=== PATIENT | female | born 1975 | race Caucasian/White ===

== ENCOUNTER 2017-10-01 14:51 | Emergency (ER) | payer MEDICARE ==
[~2017-10-01] VITALS: Ht 177.8 cm; Wt 159.1 kg
[~2017-10-01 14:51] MED LIST: DESYREL 100MG100 MG PO; GEODON80 MG PO; VALIUM 5MG T5 MG/TAB PO
[2017-10-01 14:53] VITALS: BP 146/90; TEMP 98.2
[2017-10-01] MEDS ORDERED: PHENERGAN 25 TA25 MG PO (16:14)
[2017-10-01 17:03] VITALS: PULSE 96
== END 2017-10-01 17:03 | disposition home or self-care (01) ==
LOC: COL.ER 14:51
DX: F31.9 Bipolar disorder, unspecified (principal)

== ENCOUNTER 2017-12-27 23:07 | Emergency (ER) | payer MEDICARE ==
[~2017-12-27] VITALS: Ht 177.8 cm; Wt 159.1 kg
[~2017-12-27 23:07] MED LIST changes: +PHENERGAN 25 TA25 MG PO
[2017-12-27 23:08] VITALS: TEMP 98.3
[2017-12-28 00:30] LABS: BASO # 0.1 (0.0-0.2); BASO % 0.7 % (0.0-2.0); EOS # 0.3 (0.0-0.7); EOS % 2.8 % (0-4.0); GRAN # 8.1 (1.4-6.5); GRAN % 69.2 % (42.2-75.2); HEMATOCRIT 43.7 % (37.0-47.0); HEMOGLOBIN 14.2 g/dl (12.5-16.0); LYMPH # 2.5 (1.2-3.4); LYMPH % 21.4 % (20.0-51.0); MEAN CELL VOLUME 86 fl (80.0-100.0); MEAN CORPUSCULAR HEMOGLOBIN 28 pg (27.0-31.0); MEAN CORPUSCULAR HGB CONC 33 g/dl (33.0-37.0); MEAN PLATELET VOLUME 9.1 fl (7.4-10.4); MONO # 0.6 (0.1-0.6); MONO % 5.4 % (1.7-9.3); PLATELET COUNT 291 K/mm3 (130-400); RED BLOOD COUNT 5.08 M/mm3 (4.10-5.30)
[2017-12-28 00:41] LABS: ALANINE AMINOTRANSFERASE 31 U/L (9-52); ALBUMIN 3.9 gm/dL (3.5-5.0); ALKALINE PHOSPHATASE 122 U/L (50-136); ANION GAP 8 mmol/L (7-16); AST,SGOT 18 U/L (15-37); BILIRUBIN,TOTAL 0.3 mg/dL (0.0-1.0); BLOOD UREA NITROGEN 13 mg/dL (7-17); CALCIUM 9.1 mg/dL (8.4-10.2); CARBON DIOXIDE 27 mmol/L (22-30); CHLORIDE 102 mmol/L (98-107); CREATININE, serum 0.71 mg/dL (0.52-1.25); GLUCOSE 155 mg/dL (74-106); PHOSPHOROUS 3.6 mg/dL (2.5-4.5); POTASSIUM 3.7 mmol/L (3.4-5.0); SODIUM 137 mmol/L (137-145); TOTAL PROTEIN 7.5 gm/dL (6.4-8.2)
[2017-12-28 00:47] LABS: ACETAMINOPHEN < 10 ug/mL (10-30); ALCOHOL(ethanol),MEDICAL < 10 mg/dL; SALICYLATE < 1.0 mg/dL
[2017-12-28 00:49] LABS: COLLECTION METHOD CLEAN CATCH
[2017-12-28 00:57] LABS: MUCOUS Present /lpf; PH 7 (5-8); URINE APPEARANCE Hazy; URINE BACTERIA Rare /hpf; URINE BILIRUBIN Negative (NEGATIVE); URINE BLOOD 2+ (NEGATIVE); URINE COLOR Yellow; URINE GLUCOSE Negative (NEGATIVE); URINE KETONE Negative (NEGATIVE); URINE LEUKOCYTE ESTERASE Trace (NEGATIVE); URINE NITRATE Negative (NEGATIVE); URINE PROTEIN(semi-quant) Negative (NEGATIVE); URINE UROBILINOGEN Negative (NEGATIVE)
[2017-12-28 01:00] VITALS: BP 127/64
[2017-12-28 01:02] LABS: TRICYCLIC ANTIDEPRESS URINE NEGATIVE
[2017-12-28] MEDS ORDERED: OMNICEF 300MG300 MG PO (04:22)
[2017-12-28 04:35] VITALS: PULSE 86
== END 2017-12-28 04:35 | disposition home or self-care (01) ==
LOC: COL.ER 23:07
PROVIDERS: Emergency Medicine
DX: N39.0 Urinary tract infection, site not specified (principal); F31.9 Bipolar disorder, unspecified; F43.10 Post-traumatic stress disorder, unspecified; Z88.0 Allergy status to penicillin
CPT/HCPCS: J7030

== ENCOUNTER 2018-04-08 11:54 | Emergency (ER) | payer MEDICARE ==
[~2018-04-08] VITALS: Ht 177.8 cm; Wt 190.9 kg
[~2018-04-08 11:54] MED LIST changes: +OMNICEF 300MG300 MG PO
[2018-04-08 11:55] VITALS: TEMP 97.3
[2018-04-08] MEDS ORDERED: VALIUM 5MG T5 MG/TAB PO ×2 (12:09→12:10)
[2018-04-08] MEDS ORDERED: ZOLOFT 100MG100 MG PO (12:10)
[2018-04-08] MEDS ORDERED: GEODON80 MG PO (12:10)
[2018-04-08] MEDS ORDERED: DESYREL 100MG100 MG PO (12:10)
[2018-04-08 13:13] LABS: COLLECTION METHOD CLEAN CATCH
[2018-04-08 13:25] LABS: PH 6 (5-8); URINE APPEARANCE Clear; URINE BACTERIA Rare /hpf; URINE BILIRUBIN Negative (NEGATIVE); URINE BLOOD 1+ (NEGATIVE); URINE COLOR Yellow; URINE GLUCOSE Negative (NEGATIVE); URINE KETONE Negative (NEGATIVE); URINE LEUKOCYTE ESTERASE Trace (NEGATIVE); URINE NITRATE Negative (NEGATIVE); URINE PROTEIN(semi-quant) Negative (NEGATIVE); URINE UROBILINOGEN Negative (NEGATIVE)
[2018-04-08] MEDS ORDERED: MEDROL 4MG DOSPA4 MG PO (13:34)
[2018-04-08 14:00] VITALS: PULSE 97
== END 2018-04-08 14:00 | disposition home or self-care (01) ==
LOC: COL.ER 11:54
PROVIDERS: Family Medicine
DX: M54.5 Low back pain (principal); F31.9 Bipolar disorder, unspecified; F17.210 Nicotine dependence, cigarettes, uncomplicated; Z96.651 Presence of right artificial knee joint
CPT/HCPCS: J1885

== ENCOUNTER 2018-08-18 19:30 | Emergency (ER) | payer MEDICARE ==
[~2018-08-18] VITALS: Ht 177.8 cm; Wt 159.1 kg
[~2018-08-18 19:30] MED LIST changes: +MEDROL 4MG DOSPA4 MG PO; +ZOLOFT 100MG100 MG PO
[2018-08-18 19:33] VITALS: TEMP 97
[2018-08-18 19:59] LABS: COLLECTION METHOD CLEAN CATCH
[2018-08-18 20:16] LABS: TRICYCLIC ANTIDEPRESS URINE NEGATIVE
[2018-08-18 20:27] LABS: MUCOUS Present /lpf; PH 5 (5-8); URINE APPEARANCE Cloudy; URINE BACTERIA Rare /hpf; URINE BILIRUBIN Negative (NEGATIVE); URINE BLOOD 1+ (NEGATIVE); URINE COLOR Yellow; URINE GLUCOSE Negative (NEGATIVE); URINE KETONE Negative (NEGATIVE); URINE LEUKOCYTE ESTERASE Trace (NEGATIVE); URINE NITRATE Negative (NEGATIVE); URINE PROTEIN(semi-quant) 2+ (NEGATIVE)
[2018-08-18 20:29] LABS: BASO # 0.1 (0.0-0.2); BASO % 0.8 % (0.0-2.0); EOS # 0.3 (0.0-0.7); EOS % 3.5 % (0-4.0); GRAN # 6.2 (1.4-6.5); GRAN % 64.8 % (42.2-75.2); HEMATOCRIT 44.2 % (37.0-47.0); HEMOGLOBIN 13.9 g/dl (12.5-16.0); LYMPH # 2.2 (1.2-3.4); LYMPH % 23.2 % (20.0-51.0); MEAN CELL VOLUME 87 fl (80.0-100.0); MEAN CORPUSCULAR HEMOGLOBIN 27 pg (27.0-31.0); MEAN CORPUSCULAR HGB CONC 31 g/dl (33.0-37.0); MEAN PLATELET VOLUME 8.9 fl (7.4-10.4); MONO # 0.7 (0.1-0.6); PLATELET COUNT 335 K/mm3 (130-400); RED BLOOD COUNT 5.09 M/mm3 (4.10-5.30)
[2018-08-18 20:38] LABS: ALANINE AMINOTRANSFERASE 29 U/L (9-52); ALBUMIN 3.7 gm/dL (3.5-5.0); ALKALINE PHOSPHATASE 113 U/L (50-136); ANION GAP 8 mmol/L (7-16); AST,SGOT 26 U/L (15-37); BILIRUBIN,TOTAL 0.4 mg/dL (0.0-1.0); BLOOD UREA NITROGEN 8 mg/dL (7-17); CALCIUM 8.6 mg/dL (8.4-10.2); CARBON DIOXIDE 29 mmol/L (22-30); CHLORIDE 97 mmol/L (98-107); CREATININE, serum 0.65 mg/dL (0.52-1.25); GLUCOSE 169 mg/dL (74-106); POTASSIUM 3.6 mmol/L (3.4-5.0); SODIUM 134 mmol/L (137-145); TOTAL PROTEIN 7.5 gm/dL (6.4-8.2)
[2018-08-18 20:41] LABS: ACETAMINOPHEN < 10 ug/mL (10-30); ALCOHOL(ethanol),MEDICAL < 10 mg/dL; SALICYLATE < 1.0 mg/dL
[2018-08-19 04:30] VITALS: BP 121/67; PULSE 106
== END 2018-08-19 04:36 ==
LOC: COL.ER 19:30
PROVIDERS: Emergency Medicine
DX: R45.851 Suicidal ideations (principal); F31.9 Bipolar disorder, unspecified; N39.0 Urinary tract infection, site not specified; F17.210 Nicotine dependence, cigarettes, uncomplicated; Z90.49 Acquired absence of other specified parts of digestive tract; F43.10 Post-traumatic stress disorder, unspecified; Z90.89 Acquired absence of other organs; Z98.890 Other specified postprocedural states; Z88.0 Allergy status to penicillin

== ENCOUNTER 2019-05-09 04:57 | Observation (INO) | payer MEDICARE, OTHER ==
[2019-05-09] VITALS (8 sets, daily range): BP systolic 104–149; BP diastolic 52–80; PULSE 98–116; TEMP 97.8–98.3
[~2019-05-09] VITALS: Ht 177.8 cm; Wt 194.0 kg
[2019-05-09 05:30] LABS: BASO # 0.1 (0.0-0.2); BASO % 0.7 % (0.0-2.0); EOS # 0.3 (0.0-0.7); GRAN # 7.8 (1.4-6.5); GRAN % 70.8 % (42.2-75.2); HEMATOCRIT 44.7 % (37.0-47.0); HEMOGLOBIN 14.1 g/dl (12.5-16.0); LYMPH % 18.3 % (20.0-51.0); MEAN CELL VOLUME 87 fl (80.0-100.0); MEAN CORPUSCULAR HEMOGLOBIN 27 pg (27.0-31.0); MEAN CORPUSCULAR HGB CONC 32 g/dl (33.0-37.0); MEAN PLATELET VOLUME 9.1 fl (7.4-10.4); MONO # 0.7 (0.1-0.6); MONO % 6.6 % (1.7-9.3); PLATELET COUNT 314 K/mm3 (130-400); RED BLOOD COUNT 5.15 M/mm3 (4.10-5.30); REDCELL DISTRIBUTION WIDTH-CV 14.7 % (11.5-14.5)
[2019-05-09 05:43] LABS: ALBUMIN 3.4 gm/dL (3.5-5.0); BILIRUBIN,TOTAL 0.2 mg/dL (0.0-1.0); C-REACTIVE PROTEIN 3.4 mg/dL (0.0-0.9); CALCIUM 8.7 mg/dL (8.4-10.2); CREATININE, serum 0.78 (0.52-1.25); POTASSIUM 4.2 mmol/L (3.4-5.0); TOTAL PROTEIN 7.2 gm/dL (6.4-8.2)
[2019-05-09] MEDS ORDERED: DESYREL 100MG100 MG PO (10:05)
[2019-05-09] MEDS ORDERED: XANAX 1MG1 MG PO (10:05)
--- NOTE | 2019-05-09 13:45 | NUR ---
PT ADMITTED TO FLOOR AT THIS TIME. FAMILY AT BEDSIDE. IV FLUIDS INFUSING. PT REMAINS HAVING C/O ABD PAIN.
--- NOTE | 2019-05-09 14:30 | NUR ---
PT VOICED SOME ANXIOUSNESS AND WORRY ABOUT INSULIN AND NEW DX OF DIABETITIS. STATES THAT SHE IS UNABLE TO AFFORD INSULIN AND WORRYS ABOUT HER DEPRESSION. STATES THAT SOME DAYS SHE DOESNT AWANT TO GET OUT OF BED DUE TO HER DEPRESSION THAT THE WORRY OF CHECKING BLOOD SUGAR AND NEEDING INSULIN SEEMS LIKE MORE THAN SHE CAN HANDLE. THIS NURSE INFORMED PT THAT EMERGENCY VETERINARY TECHNICIAN HAS BEEN CONSULTED AND THAT THEY WILL WORK WITH HER AND ATTMEPT TO HELP HER WITH THE AFFORDABILITY OF THE INSULIN. THIS NURSE ALSO INFORMED PT THAT WE WILL PROVIDE HER WITH INFORMATION/EDUCATION ABOUT DIABETISIS AND HOW TO CHECK BLOOD SUGAR AND GIVE INSULIN. PT ANSWERED SUICIDE QUESTIONS THAT YES PRAVEENA HAS THOUGHT ABOUT ENDING HER LIFE BUT DOESNT HAVE A PLAN OR THOUGHTS OF HOW TO INITIATE KILLING SELF. PT VOICES THAT HE HAS MAJOR DEPRESSION AND PTSD AND CANT HARDLY AFFORD PSYCH MEDS.
--- NOTE | 2019-05-09 17:00 | NUR ---
THIS NURSE PRINTED PT EDUCATION AND TALKED TO PATIENT ABOUT HYPERGLYCEMIA AND THE DIABETIC DIET. THIS NURSE ALSO TALKED TO PATIENT ABOUT POSSIBLE TREATMENT OPTIONS THAT ARE AVALIBLE WITH DIABETIS. PT VOICED THAT SHE WAS WORRIED THAT SHE WOULDNT BE GIVE HERSELF A SHOT.
--- NOTE | 2019-05-10 00:53 | NUR ---
Patient is alert and oriented, and able to make needs known. At beginning of shift, patient reported feeling very anxious about new diagnosis of diabetes, and was having pain to abdomen, rated as an 8. Given PRN Xanax and PRN [place] per request for anxiety and pain around 1999. Patient has not had any furhter complaints of pain or discomfort. NS continues to run at 100 ml/hr to peripheral IV site to right forearm. Continues to wear oxygen at 2 L/min via NC. Education provided to patient about diabetes, ADA diet, blood sugar checks, and oxygen levels. No further questsions or concerns so far this shift. Resting in bed with eyes closed at this time. Call light is within reach.
[2019-05-10 03:18] VITALS: BP 132/70; PULSE 110; TEMP 98.1
--- NOTE | 2019-05-10 06:29 | NUR ---
Resting in bed with eyes closed at this time. NS continues to run at 100 mls/hr to peripheral IV in right forearm per orders. Continues to wear oxygen at 2 L/min via NC. Has denied having pain and discomfort. Call light is within reach.
[2019-05-10 07:30] VITALS: BP 131/46; PULSE 82; TEMP 97.9
[2019-05-10 08:09] LABS: BASO # 0.1 (0.0-0.2); BASO % 0.6 % (0.0-2.0); EOS # 0.2 (0.0-0.7); EOS % 2.2 % (0-4.0); GRAN # 7.3 (1.4-6.5); GRAN % 77.6 % (42.2-75.2); HEMATOCRIT 42.6 % (37.0-47.0); HEMOGLOBIN 12.5 g/dl (12.5-16.0); LYMPH # 1.3 (1.2-3.4); LYMPH % 13.4 % (20.0-51.0); MEAN CELL VOLUME 92 fl (80.0-100.0); MEAN CORPUSCULAR HEMOGLOBIN 27 pg (27.0-31.0); MEAN CORPUSCULAR HGB CONC 29 g/dl (33.0-37.0); MEAN PLATELET VOLUME 9.4 fl (7.4-10.4); MONO # 0.5 (0.1-0.6); MONO % 5.1 % (1.7-9.3); PLATELET COUNT 290 K/mm3 (130-400); RED BLOOD COUNT 4.63 M/mm3 (4.10-5.30); REDCELL DISTRIBUTION WIDTH-CV 15.2 % (11.5-14.5)
[2019-05-10 08:21] LABS: CREATININE, serum 0.55 (0.52-1.25); POTASSIUM 4.7 mmol/L (3.4-5.0)
[2019-05-10 09:07] LABS: COLLECTION METHOD CLEAN CATCH
--- NOTE | 2019-05-10 09:22 | NUR ---
Assessment completed, alert/oriented, vital signs stable/ slightly tachycardic, she denies pain and stated her abdomen is feeling much better, she seems a little drowsy and stated she just kind of "feels funny" this morning/ she did receive a dose of xanax last night and stated she does not take this very often at home so this could be contributing, new dx DM and fsbs 243 this morning and treating with SSI as ordered / some DM education done at this time, she has been up to bathroom with stand by assist and provided urine sample for UA/ lab, Sinus Tach on tele, distal pulses are plapable, ECHO ordered, lungs CTA/ diminished/ distant as patient is very obese, will ween off her oxygen as she does not wear oxygen at baseline, she is sitting at the edge of the bed waiting for her breakfast, will continue to monitor and discuss plan of care with hospitalist
[2019-05-10 09:26] LABS: MUCOUS Present /lpf; PH 5 (5-8); URINE APPEARANCE Hazy; URINE BACTERIA None Seen /hpf; URINE BILIRUBIN Negative (NEGATIVE); URINE BLOOD 1+ (NEGATIVE); URINE COLOR Yellow; URINE GLUCOSE 1+ (NEGATIVE); URINE KETONE Negative (NEGATIVE); URINE LEUKOCYTE ESTERASE Trace (NEGATIVE); URINE NITRATE Negative (NEGATIVE); URINE PROTEIN(semi-quant) Negative (NEGATIVE); URINE UROBILINOGEN Negative (NEGATIVE)
--- NOTE | 2019-05-10 11:11 | NUR ---
patient desats to 83% witout O2 on, on 3L. she rebounded quickly back to 92%, HR is also sustatining between 110-125 BPM and it is sinus on tele, I have discussed plan of care with hospitalist, we are starting Metoprolol and social service director following for discharge needs
[2019-05-10 11:44] LABS: ARTERIAL BLD GAS O2 SATURATION 94.6 % (92-100); ARTERIAL BLOOD GAS BASE EXCESS 2.9 (-2-2); ARTERIAL BLOOD GAS PCO2 64.2 mmHg (35-45); ARTERIAL BLOOD GAS PO2 77.9 mmHg (80-100)
[2019-05-10 11:46] VITALS: BP 104/55; PULSE 105; TEMP 98.2
--- NOTE | 2019-05-10 12:00 | NUR ---
BIPAP REFUSED. RT ATTEMPTED TO ONCOLOGY RESEARCH RN PT WITH BIPAP MASK HELD LIGHTLY OVER FACE, PT WOULD NOT TOLERATE IT. STATED THAT MASK WAS "TERRIFYING" AND PT HAD NO INTEREST IN TRYING BIPAP FOR A BRIEF PERIOD. RN ALSO UNSUCCESSFUL AT ENCOURAGING PT TO TRY BIPAP. BIPAP LEFT IN ROOM FOR POSSIBLE LATER TRIAL. PHYSICIAN NOTIFIED.
--- NOTE | 2019-05-10 12:41 | NUR ---
notified of resp.Acidosis on ABG/ he ordered bi-pap and CXR, patient refusing Bi-pap, I offered xanax, she stated she may try it again later, we have notified of her refusal
--- NOTE | 2019-05-10 14:00 | NUR ---
SW attended clinical rounds to discuss discharge planning. Patient lives at home alone. Patient reports she has been independent and has not required any DME or home health services. Patient reports she does have a walker but does not require it for ambulating. Patient's PCP is Sarah Michelle at the [facility] and she obtains prescriptions from [facility]. Patient reports most of her medications are inexpensive but if she requires any new medications once she is discharged, she will likely not be able to afford them. Patient is a new diabetic and is requiring insulin. At the time of discharge SW will inquire which insulin patient is going to discharged home on and research costs. Patient reports she has never been diagnosed with diabetes so she is unsure of how to manage the insulin. SW reported that the nurses can teach patient how to do insulin injections and also schedule and appoitment with diabetes education. SW reported that patient will be seen by PT/OT and if they recommend any home health of post acute rehab, SW will meet with patient about options. PATRICE also spoke to patient nurse and patient's brother, Antoine, has concerns about patient living alone. SW attempted to contact Antoine but was unable to speak with him. SW left a message. SW will continue to follow and assist with discharge needs. Antoine [phone]
[2019-05-10 17:04] VITALS: BP 118/58; PULSE 90
[2019-05-10 17:48] LABS: ARTERIAL BLD GAS O2 SATURATION 93.8 % (92-100); ARTERIAL BLD GAS TCO2 CT 33.6; ARTERIAL BLOOD GAS HCO3 31.5 meq/L (22-26); ARTERIAL BLOOD GAS PCO2 67.4 mmHg (35-45); ARTERIAL BLOOD GAS PO2 75.7 mmHg (80-100); ARTERIAL BLOOD GAS pH 7.29 (7.35-7.45)
[2019-05-10 19:52] VITALS: BP 118/62; PULSE 94; TEMP 98.4
--- NOTE | 2019-05-10 20:00 | NUR ---
PT IN BED WITH HOB AT 45 DEGREE ANGLE, O2 ON AT 3L/NC. PT CONTINUES TO REFUSE BIPAP. PT REQUESTED SANDWICH BOX WITH MEDICATIONS. PT DENIES PAIN OR DISCOMFORT. EDUCATED ON INSULIN AND OTHER MEDS THAT PT IS GETTING. PT HAS NO NEEDS AT THIS TIME, CALL LIGHT WITHIN REACH.
[2019-05-10 23:17] VITALS: BP 113/57; PULSE 97; TEMP 98.7
[2019-05-11 04:45] VITALS: BP 101/53; PULSE 99; TEMP 98.1
--- NOTE | 2019-05-11 05:59 | NUR ---
UNEVENTFUL NIGHT, PT SLEPT/RESTED WELL WITH NO S/S OF PAIN OR DISCOMFORT NOTED. CALL LIGHT WITHIN REACH.
[2019-05-11 07:10] LABS: BASO # 0.1 (0.0-0.2); BASO % 0.5 % (0.0-2.0); EOS # 0.3 (0.0-0.7); GRAN # 6.5 (1.4-6.5); GRAN % 69.5 % (42.2-75.2); LYMPH # 1.7 (1.2-3.4); LYMPH % 18.6 % (20.0-51.0); MEAN CELL VOLUME 91 fl (80.0-100.0); MEAN CORPUSCULAR HEMOGLOBIN 27 pg (27.0-31.0); MEAN CORPUSCULAR HGB CONC 30 g/dl (33.0-37.0); MEAN PLATELET VOLUME 9.3 fl (7.4-10.4); MONO # 0.7 (0.1-0.6); MONO % 7.5 % (1.7-9.3); PLATELET COUNT 258 K/mm3 (130-400); RED BLOOD COUNT 4.75 M/mm3 (4.10-5.30); REDCELL DISTRIBUTION WIDTH-CV 15.2 % (11.5-14.5)
[2019-05-11 07:22] LABS: CALCIUM 7.8 mg/dL (8.4-10.2); CREATININE, serum 0.51 (0.52-1.25); POTASSIUM 4.7 mmol/L (3.4-5.0)
[2019-05-11 08:10] VITALS: BP 120/57; PULSE 109; TEMP 98.4
--- NOTE | 2019-05-11 09:39 | NUR ---
Assessment completed, alert/oriented, denies pain or discomfort, vital signs stable/ heart rate improved after having started Metoprolol yesterday, blood sugars are still running high but improved sence admission, patient is still in denial about having DM, I have done more teaching and more education on DM and insulin, heart regular/ HR improved around 100 BPM, lungs diminished/ distant as she is obese, she is still requiring 3-4L. o2 to keep sats >90%, she continued to refuse bi-pap last night and stated "there is no way I am wearing that" and continues to be in denial about her need for home oxygen and c-pap, I have again educated on these issues as well as discussing weight loss and outpatient sleep study / she does not think these things are neccessary either and stated "all theses treatments we are doing are overkill", the patients bed is visibly soiled with urine and her room smells like urine but she denies having incontinence and stated she only gets up to urinate twice daily and this is normal for her/ therfore I/O are inaccurate, she has gotten up with PT this morning and walked a short distance and is now sitting in the chair eating breakfast, she is refusing shower/ bath at this time, she reports "she is going home today reguardless", denies needs at this time, will discuss plan of care with hospitalist
--- NOTE | 2019-05-11 11:38 | NUR ---
, , Social work and Myself all went in and discussed the plan of care with the patient, we educated her on her Co2 retention and her resp.acidosis per the results of her ABG and that this is what is causing her syncopal episodes and lethargy especailly in the mornings, she is adamantly refusing bi-pap even when offered to put her in ICU on a drip to help calm down to tolerate the bi-pap treatment more effectivey/ she still refused, with her treamtment refusal we also will not be able to get her set up with home oxygen which she is currently requiring, we have also discussed that we are not comfortable sending her with Insulin to do at home alone with her other conditons causing altered mental status/ she verbalized understanding of this, we have offered sending referals for senior care facilities/ she adamantly refused this as well, she did agree to allowing us to send a referral to [facility] for some home health services, We have discussed that with her refusal of neccassry cares to stablalize her medical conditions that she is taking a huge medical risk by leaving without proper care and even facing possible , therefore we cannot discharge her but her leaving would be against medical advice, She verbalized understanding of the infmoration we have given her and voiced her desire to proceed with going home Against medical adivce , I will remove her IV lines and telemetry, she is calling her brother to pick her up from the hospital
--- NOTE | 2019-05-11 11:48 | NUR ---
SW consulted with PA and Nurse about patient selecting a SNF with all the medical concerns she has. Patient declined SNF, and options for SW to facilitate care with the [facility]. Client indicated that she will accept help with home health care but it is not covered under her current insuracne. SW place referral to [facility] for homehealth services Ph, Fax [phone]. SW expressed concerns of patient going home. Patient verbalizes understanding of leaving AMA and without proper services. Due to high level of concer and APS report will be made to insurance patients safety at home. Patient states, that she does not care what happens to her as long as she is home with her cares. Patient declined additional services.
[2019-05-11 12:04] VITALS: BP 106/57; PULSE 100; TEMP 98.3
--- NOTE | 2019-05-11 12:19 | NUR ---
PT LEAVING AMA ABG NOT DONE
== END 2019-05-11 12:17 | disposition left against medical advice (07) ==
LOC: COL.ER 04:57 → MEDICAL 11:00
PROVIDERS: Emergency Medicine; Internal Medicine Critical Care Medicine; Internal Medicine Pulmonary Disease; Physician Assistant; ADMIT Family Medicine
DX: R10.31 Right lower quadrant pain (principal); R11.0 Nausea; R63.0 Anorexia; R55 Syncope and collapse; R09.02 Hypoxemia; R06.89 Other abnormalities of breathing; E11.9 Type 2 diabetes mellitus without complications; E66.01 Morbid (severe) obesity due to excess calories; Z68.44 Body mass index [BMI] 60.0-69.9, adult; Z90.49 Acquired absence of other specified parts of digestive tract; Z96.651 Presence of right artificial knee joint; F17.210 Nicotine dependence, cigarettes, uncomplicated; Z88.1 Allergy status to other antibiotic agents; Z88.0 Allergy status to penicillin; E27.9 Disorder of adrenal gland, unspecified; F32.9 Major depressive disorder, single episode, unspecified; F43.10 Post-traumatic stress disorder, unspecified; R91.1 Solitary pulmonary nodule; R00.0 Tachycardia, unspecified; Z79.899 Other long term (current) drug therapy; Z56.89 Other problems related to employment
CPT/HCPCS: 99222-AI; 99233-AI; 99239; G0378; J1650; J1815; J1956; J2270; J2405; J7030; Q9967

== ENCOUNTER 2019-05-12 03:35 | Observation (INO) | payer MEDICARE, OTHER ==
[~2019-05-12] VITALS: Ht 177.8 cm; Wt 200.0 kg
[~2019-05-12 03:35] MED LIST changes: +XANAX 1MG1 MG PO
[2019-05-12 04:20] LABS: ARTERIAL BLD GAS O2 SATURATION 86.7 % (92-100); ARTERIAL BLD GAS TCO2 CT 29.3; ARTERIAL BLOOD GAS BASE EXCESS 2.3 (-2-2); ARTERIAL BLOOD GAS HCO3 27.9 meq/L (22-26); ARTERIAL BLOOD GAS PO2 52.3 mmHg (80-100); ARTERIAL BLOOD GAS pH 7.39 (7.35-7.45)
[2019-05-12 04:28] LABS: BASO # 0.1 (0.0-0.2); BASO % 0.7 % (0.0-2.0); EOS # 0.3 (0.0-0.7); EOS % 3.3 % (0-4.0); GRAN # 6.8 (1.4-6.5); GRAN % 73.9 % (42.2-75.2); HEMATOCRIT 40.6 % (37.0-47.0); HEMOGLOBIN 12.8 g/dl (12.5-16.0); LYMPH # 1.3 (1.2-3.4); LYMPH % 14.2 % (20.0-51.0); MEAN CORPUSCULAR HEMOGLOBIN 27 pg (27.0-31.0); MEAN CORPUSCULAR HGB CONC 32 g/dl (33.0-37.0); MEAN PLATELET VOLUME 8.8 fl (7.4-10.4); MONO # 0.6 (0.1-0.6); MONO % 6.9 % (1.7-9.3); PLATELET COUNT 253 K/mm3 (130-400); REDCELL DISTRIBUTION WIDTH-CV 14.6 % (11.5-14.5)
[2019-05-12 04:42] LABS: MEAN CELL VOLUME 86 fl (80.0-100.0)
[2019-05-12 04:46] LABS: ALANINE AMINOTRANSFERASE 15 U/L (9-52); ALBUMIN 3.1 gm/dL (3.5-5.0); ALKALINE PHOSPHATASE 111 U/L (50-136); ANION GAP 9 mmol/L (7-16); AST,SGOT 21 U/L (15-37); BILIRUBIN,TOTAL 0.5 mg/dL (0.0-1.0); BLOOD UREA NITROGEN 9 mg/dL (7-17); CALCIUM 8.1 mg/dL (8.4-10.2); CARBON DIOXIDE 27 mmol/L (22-30); CHLORIDE 97 mmol/L (98-107); CREATININE, serum 0.55 (0.52-1.25); GLUCOSE 230 mg/dL (74-106); POTASSIUM 3.4 mmol/L (3.4-5.0); SODIUM 134 mmol/L (137-145); TOTAL PROTEIN 6.5 gm/dL (6.4-8.2)
[2019-05-12 05:01] LABS: TROPONIN-I < 0.012 ng/mL (0.000-0.035)
[2019-05-12 07:54] VITALS: BP 122/69; PULSE 83
--- NOTE | 2019-05-12 08:46 | NUR ---
Pt assessment completed. Pt lungs sounds diminished lower and clear upper. Pt on 2L oxygen via nasal cannula. Pt obese and in geribed. Pt IV patent an no redness or infiltration noted. Pt admitted to unit from ED. Pt meds and allergies reviewed. Pt BS 211. Pt has call light in reach and denies needs.
[2019-05-12 11:34] VITALS: BP 106/58; PULSE 93; TEMP 97.5
--- NOTE | 2019-05-12 12:07 | NUR ---
Patient is in need of a bipap machine and family welfare social work professor provided the Patient Choice Durable Medical Equipment Form. Patient chose [facility] and family welfare social work professor put completed form in patient's medical chart. Patient discussed concerns with medical care and medication affordability. workers' compensation hearings officer offered emotional support, referred the patient to [facility], [facility], and [employer], and provided the patient with the [facility] Financial Assistance Application. workers' compensation hearings officer left a note for Nurse Co Founder And Ceo to follow up with patient regarding specific coverage of Medicare parts A, B, D. workers' compensation hearings officer faxed facesheet, orders, history and physical to [facility] at [phone]. business services assistant will follow as needed.
--- NOTE | 2019-05-12 15:49 | NUR ---
Pt stable this shift on 2L oxygen via nasal cannula. Pt alert and oriented. Pt denies pain at this time. Pt has call light in reach. Pt BS consistently above 200's with meals and current insulin scale. Pt raiza needs at this time.
[2019-05-12 16:01] VITALS: BP 118/71; PULSE 101; TEMP 98
--- NOTE | 2019-05-12 19:05 | NUR ---
Report given to Charisse SHEA.
[2019-05-12 19:29] VITALS: BP 105/54; PULSE 94; TEMP 97.8
--- NOTE | 2019-05-12 20:00 | NUR ---
Patient report received from SHABBIR Handy at shift change. Upon assessment at this time patient is sitting up in the chair resting comfortably. Patient reports being on room air since getting up to the bathroom. Denies any SOB, oxygen checked, sats at 92% on RA. Patient plans to wear Bipap over night. Patients IV to right FA is reddened slightly and hurts with flushing, discontinued at this time. Ice water refilled. No other needs reported.
[2019-05-13 00:30] VITALS: BP 107/56; PULSE 86; TEMP 982
--- NOTE | 2019-05-13 03:01 | NUR ---
Patient appears to be sleeping comfortably at this time. Bipap in place. No needs observed.
[2019-05-13 04:26] LABS: ARTERIAL BLD GAS O2 SATURATION 94.8 % (92-100); ARTERIAL BLD GAS TCO2 CT 30.4; ARTERIAL BLOOD GAS BASE EXCESS 0.9 (-2-2); ARTERIAL BLOOD GAS HCO3 28.6 meq/L (22-26); ARTERIAL BLOOD GAS PCO2 59.3 mmHg (35-45); ARTERIAL BLOOD GAS PO2 84.8 mmHg (80-100)
[2019-05-13 05:40] VITALS: BP 122/42; PULSE 80
[2019-05-13 06:00] LABS: BASO # 0.1 (0.0-0.2); BASO % 0.8 % (0.0-2.0); EOS # 0.3 (0.0-0.7); EOS % 3.1 % (0-4.0); GRAN # 6.7 (1.4-6.5); HEMATOCRIT 40.9 % (37.0-47.0); HEMOGLOBIN 12.3 g/dl (12.5-16.0); LYMPH # 1.5 (1.2-3.4); LYMPH % 16.2 % (20.0-51.0); MEAN CELL VOLUME 90 fl (80.0-100.0); MEAN CORPUSCULAR HEMOGLOBIN 27 pg (27.0-31.0); MEAN CORPUSCULAR HGB CONC 30 g/dl (33.0-37.0); MEAN PLATELET VOLUME 9.3 fl (7.4-10.4); MONO # 0.6 (0.1-0.6); MONO % 6.2 % (1.7-9.3); PLATELET COUNT 268 K/mm3 (130-400); RED BLOOD COUNT 4.57 M/mm3 (4.10-5.30); REDCELL DISTRIBUTION WIDTH-CV 15.3 % (11.5-14.5)
[2019-05-13 06:15] LABS: ALBUMIN 2.9 gm/dL (3.5-5.0); BILIRUBIN,TOTAL 0.4 mg/dL (0.0-1.0); CALCIUM 8.7 mg/dL (8.4-10.2); CREATININE, serum 0.59 (0.52-1.25); MAGNESIUM 2.1 mg/dL (1.6-2.3); PHOSPHOROUS 4.3 mg/dL (2.5-4.5); POTASSIUM 3.7 mmol/L (3.4-5.0); TOTAL PROTEIN 6.3 gm/dL (6.4-8.2)
[2019-05-13 07:31] VITALS: BP 114/61; PULSE 86; TEMP 97.5
--- NOTE | 2019-05-13 10:00 | NUR ---
Initial visit; Patient thanked Perfume And Toilet Water Maker for looking in on her and offering God's blessings.
--- NOTE | 2019-05-13 12:08 | NUR ---
Patient assessment complete and charted. Patient laying in bed. Denies chest pain, abdominal pain, N/V, palpitations, dizziness, SOB. Patient on 2L NC, tele in place. LFA INT IV is patent, no complications or redness. Pt denies needs at this time, cooperative with cares. Call light within reach.
[2019-05-13 12:11] VITALS: BP 112/43; PULSE 87; TEMP 97.4
--- NOTE | 2019-05-13 12:45 | NUR ---
SW attended clincal rounds to discuss discharge plan. Doctor reports patient could discharge home today if patient could be set up with a Trilogy. Weekend PATRICE faxed a referral to [facility]. PATRICE contacted [facility]. [facility] asked for more notes. SW faxed additional information. During patient's last admission (Thursday 05/10), PT/OT recommended patient get home health PT and OT. SW inquired if patient would like these services. Patient reported she would. SW presented medicare.gov resource list for home health. Patient chose [facility]. SW faxed a referral for PT/OT/SN. Patient is also concerned about paying for insulin. SW reported that the financial counselor will meet with patient about Medicaid noemí and FAA. SW also reported that patient's PCP (Deejay Richardson) has porgrams to help patient's pay for medications. Patient was also given community resources by weekend PATRICE. PATRICE is waiting on a call from [facility] about if patient qualifies for trilogy.
--- NOTE | 2019-05-13 12:46 | NUR ---
Patient did not receive noon sliding novolog. patient recevied 2 units novolog at 1045. This nurse also just administered 20 units Novolog mix 70/30. Will check BS for 1700 dose. Miconazole applied to abdominal and bal area. patient was cleaned and powder applied under folds of abdomen and between legs.
[2019-05-13 15:40] VITALS: BP 100/52; PULSE 79; TEMP 97.8
--- NOTE | 2019-05-13 17:55 | NUR ---
This nurse had to tell patient she was not discharging today. Earlier during rounds, it was discussed that she may discharge today. Pt needs trilogy to go home and that is unable to be secured until tomorrow. Discharge plan is for tomorrow. Patient was not happy about having to stay another night, wanted to get "home to her cats, they are not eating". I discussed with patient the benefits of staying and risks of leaving and then ending up back at the hospital. I told the patient I would "give her time to think it over". This nurse contacted Dr. Walker to discuss patients wishes to leave AMA. Dr. Walker visited with patient. Patient decided not to leave AMA, would stay one more night.
--- NOTE | 2019-05-13 19:36 | NUR ---
Report given to SHABBIR Mcquene to resume cares. No other needs at this time .
[2019-05-13 20:06] VITALS: BP 100/56; PULSE 92; TEMP 97.7
[2019-05-14] VITALS: BP 95/58; PULSE 80; TEMP 97.1
[2019-05-14 02:13] VITALS: BP 95/58; PULSE 80; TEMP 97.1
--- NOTE | 2019-05-14 06:53 | NUR ---
PT REFUSED BREATHING TX. 93% RA.
[2019-05-14] MEDS ORDERED: LOPRESSOR 225 MG/TAB PO (07:30)
[2019-05-14] MEDS ORDERED: GLUCOPHAGE500 MG/TAB PO (07:30)
[2019-05-14] MEDS ORDERED: INSULIN 70/3100 U/ML SQ (07:31)
[2019-05-14] MEDS ORDERED: DESENEX21 TP (07:32)
[2019-05-14] MEDS ORDERED: FREESTYLE PREC1 EAC5 MC (07:33)
[2019-05-14] MEDS ORDERED: LANCETS MC (07:35)
[2019-05-14] MEDS ORDERED: INSULIN SYRING1 EA11 SQ (07:36)
[2019-05-14 07:53] VITALS: BP 110/62; PULSE 87; TEMP 98.5
[2019-05-14] MEDS ORDERED: LEVAQUIN 750MG750 M1 PO (08:42)
--- NOTE | 2019-05-14 08:49 | NUR ---
PATRICE attended clinical rounds. Patient will discharge today. Patient's brother will pick patient up this afternoon. PATRICE faxed the signed trilogy order to [facility]. [facility] will set up the trilogy at patient's home. PATRICE will also fax discharge orders to [facility] once they're completed.
--- NOTE | 2019-05-14 10:00 | NUR ---
Patient assessment complete and charted. Pt on room air sitting in recliner, cooperative with cares. Denies chest pain, dizziness, SOB, N/V. Per patient she wore the BiPap until about 5am this morning. LFA INT IV patent. Pt refused Miconazole powder for abdominal and groin area. Per patient,"I am going home today and I will shower when I get there". Refused colace and miralax as well this morning. Pt received her 70/30 insulin from lieutenant shift supervisor nurse around 0745 this morning, this nurse did not administer Novolog sliding scale. Patient ambulating in room on own. NO other needs at this time. Call light within reach.
[2019-05-14 10:16] LABS: CALCIUM 8.6 mg/dL (8.4-10.2); CREATININE, serum 0.59 (0.52-1.25); POTASSIUM 3.8 mmol/L (3.4-5.0)
[2019-05-14 10:16] LABS: ARTERIAL BLD GAS O2 SATURATION 92.7 % (92-100); ARTERIAL BLD GAS TCO2 CT 24.4; ARTERIAL BLOOD GAS BASE EXCESS -2.3 (-2-2); ARTERIAL BLOOD GAS HCO3 23.1 meq/L (22-26); ARTERIAL BLOOD GAS PCO2 42.4 mmHg (35-45); ARTERIAL BLOOD GAS PO2 65.8 mmHg (80-100); ARTERIAL BLOOD GAS pH 7.36 (7.35-7.45)
--- NOTE | 2019-05-14 12:07 | NUR ---
Patient discharge instructions discussed. Education reviewed. All questions answered. Pt denied other questions at this time. LFA INT IV removed, catheter tip intact, no complications. Awaiting brother to arrive to be escorted out.
--- NOTE | 2019-05-14 12:50 | NUR ---
Patient escorted out via wheelchair by randy Loomis.
== END 2019-05-14 12:51 | disposition home or self-care (01) ==
LOC: COL.ER 03:35 → MEDICAL 05:12
PROVIDERS: Emergency Medicine; Internal Medicine Critical Care Medicine; ADMIT Family Medicine
DX: J96.92 Respiratory failure, unspecified with hypercapnia (principal); J96.91 Respiratory failure, unspecified with hypoxia; R07.9 Chest pain, unspecified; R10.31 Right lower quadrant pain; E11.9 Type 2 diabetes mellitus without complications; E66.01 Morbid (severe) obesity due to excess calories; Z68.44 Body mass index [BMI] 60.0-69.9, adult; Z79.899 Other long term (current) drug therapy; Z79.4 Long term (current) use of insulin; Z88.0 Allergy status to penicillin; Z96.651 Presence of right artificial knee joint; F43.10 Post-traumatic stress disorder, unspecified; F32.9 Major depressive disorder, single episode, unspecified; F41.9 Anxiety disorder, unspecified; Z90.49 Acquired absence of other specified parts of digestive tract
CPT/HCPCS: 99222; 99222-AI; 99232-AI; G0378; J1650; J1815; J1956

== ENCOUNTER 2019-05-19 20:06 | Emergency (ER) | payer MEDICARE ==
[~2019-05-19] VITALS: Ht 177.8 cm; Wt 200.0 kg
[~2019-05-19 20:06] MED LIST changes: +DESENEX21 TP; +FREESTYLE PREC1 EAC5 MC; +GLUCOPHAGE500 MG/TAB PO; +INSULIN 70/3100 U/ML SQ; +INSULIN SYRING1 EA11 SQ; +LANCETS MC; +LEVAQUIN 750MG750 M1 PO; +LOPRESSOR 225 MG/TAB PO
[2019-05-19 21:17] LABS: BASO # 0.1 (0.0-0.2); BASO % 0.6 % (0.0-2.0); EOS # 0.3 (0.0-0.7); EOS % 3.4 % (0-4.0); GRAN # 7.2 (1.4-6.5); GRAN % 73.1 % (42.2-75.2); HEMATOCRIT 43.4 % (37.0-47.0); HEMOGLOBIN 13.4 g/dl (12.5-16.0); LYMPH # 1.6 (1.2-3.4); MEAN CELL VOLUME 88 fl (80.0-100.0); MEAN CORPUSCULAR HEMOGLOBIN 27 pg (27.0-31.0); MEAN CORPUSCULAR HGB CONC 31 g/dl (33.0-37.0); MEAN PLATELET VOLUME 8.9 fl (7.4-10.4); MONO # 0.6 (0.1-0.6); MONO % 6.2 % (1.7-9.3); PLATELET COUNT 261 K/mm3 (130-400); RED BLOOD COUNT 4.93 M/mm3 (4.10-5.30); REDCELL DISTRIBUTION WIDTH-CV 15.3 % (11.5-14.5)
[2019-05-19 21:27] LABS: ALBUMIN 3.4 gm/dL (3.5-5.0); BILIRUBIN,TOTAL 0.3 mg/dL (0.0-1.0); CALCIUM 8.7 mg/dL (8.4-10.2); CREATININE, serum 0.6 (0.52-1.25); POTASSIUM 3.6 mmol/L (3.4-5.0)
[2019-05-19 21:48] LABS: ARTERIAL BLD GAS O2 SATURATION 92.9 % (92-100); ARTERIAL BLD GAS TCO2 CT 26.5; ARTERIAL BLOOD GAS BASE EXCESS 0.4 (-2-2); ARTERIAL BLOOD GAS HCO3 25.2 meq/L (22-26); ARTERIAL BLOOD GAS PCO2 41.3 mmHg (35-45); ARTERIAL BLOOD GAS PO2 65.6 mmHg (80-100)
[2019-05-19 22:12] LABS: ACETAMINOPHEN < 10 ug/mL (10-30); SALICYLATE < 1.0 mg/dL
[2019-05-19 22:15] LABS: COLLECTION METHOD CLEAN CATCH
[2019-05-19 22:28] LABS: TRICYCLIC ANTIDEPRESS URINE NEGATIVE
[2019-05-19 22:36] LABS: MUCOUS Present /lpf; PH 5 (5-8); URINE APPEARANCE Hazy; URINE BACTERIA None Seen /hpf; URINE BILIRUBIN Negative (NEGATIVE); URINE BLOOD 3+ (NEGATIVE); URINE CALCIUM OXALATE CRYSTAL Present /hpf; URINE COLOR Amber; URINE GLUCOSE Negative (NEGATIVE); URINE KETONE Negative (NEGATIVE); URINE LEUKOCYTE ESTERASE Negative (NEGATIVE); URINE NITRATE Negative (NEGATIVE); URINE PROTEIN(semi-quant) 1+ (NEGATIVE); URINE UROBILINOGEN Negative (NEGATIVE)
[2019-05-20 17:19] VITALS: BP 152/79; PULSE 89; TEMP 98
== END 2019-05-20 18:13 | disposition short-term general hospital (02) ==
LOC: COL.ER 20:06
PROVIDERS: Emergency Medicine
DX: J96.10 Chronic respiratory failure, unspecified whether with hypoxia or hypercapnia (principal); F41.9 Anxiety disorder, unspecified; E11.9 Type 2 diabetes mellitus without complications; R45.851 Suicidal ideations; F32.9 Major depressive disorder, single episode, unspecified; E66.9 Obesity, unspecified; F43.10 Post-traumatic stress disorder, unspecified; F17.210 Nicotine dependence, cigarettes, uncomplicated; Z79.4 Long term (current) use of insulin; Z68.23 Body mass index [BMI] 23.0-23.9, adult
CPT/HCPCS: J1815

== ENCOUNTER 2019-06-30 01:54 | Emergency (ER) | payer MEDICARE ==
[~2019-06-30] VITALS: Ht 177.8 cm; Wt 195.5 kg
[2019-06-30 01:55] VITALS: TEMP 97.5
[2019-06-30 02:15] LABS: BASO # 0.1 (0.0-0.2); BASO % 0.8 % (0.0-2.0); EOS # 0.3 (0.0-0.7); EOS % 2.6 % (0-4.0); GRAN # 8.3 (1.4-6.5); GRAN % 71.1 % (42.2-75.2); HEMATOCRIT 44.6 % (37.0-47.0); HEMOGLOBIN 13.9 g/dl (12.5-16.0); LYMPH # 2.3 (1.2-3.4); LYMPH % 19.8 % (20.0-51.0); MEAN CELL VOLUME 88 fl (80.0-100.0); MEAN CORPUSCULAR HEMOGLOBIN 28 pg (27.0-31.0); MEAN CORPUSCULAR HGB CONC 31 g/dl (33.0-37.0); MEAN PLATELET VOLUME 9.1 fl (7.4-10.4); MONO # 0.6 (0.1-0.6); MONO % 5.3 % (1.7-9.3); PLATELET COUNT 277 K/mm3 (130-400); RED BLOOD COUNT 5.06 M/mm3 (4.10-5.30); REDCELL DISTRIBUTION WIDTH-CV 14.6 % (11.5-14.5)
[2019-06-30 02:24] LABS: ALANINE AMINOTRANSFERASE 24 U/L (9-52); ALBUMIN 3.6 gm/dL (3.5-5.0); ALKALINE PHOSPHATASE 108 U/L (50-136); ANION GAP 11 mmol/L (7-16); AST,SGOT 24 U/L (15-37); BILIRUBIN,TOTAL 0.5 mg/dL (0.0-1.0); BLOOD UREA NITROGEN 9 mg/dL (7-17); CALCIUM 8.6 mg/dL (8.4-10.2); CARBON DIOXIDE 28 mmol/L (22-30); CHLORIDE 100 mmol/L (98-107); CREATININE, serum 0.56 (0.52-1.25); GLUCOSE 173 mg/dL (74-106); LIPASE 22 U/L (23-300); POTASSIUM 3.8 mmol/L (3.4-5.0); SODIUM 138 mmol/L (137-145); TOTAL PROTEIN 7.2 gm/dL (6.4-8.2)
[2019-06-30 02:27] LABS: ACETAMINOPHEN < 10 ug/mL (10-30); ALCOHOL(ethanol),MEDICAL < 10 mg/dL; SALICYLATE < 1.0 mg/dL
[2019-06-30 02:36] LABS: COLLECTION METHOD CLEAN CATCH
[2019-06-30 02:45] LABS: MUCOUS Present /lpf; PH 7 (5-8); URINE APPEARANCE Hazy; URINE BACTERIA Rare /hpf; URINE BILIRUBIN Negative (NEGATIVE); URINE BLOOD Negative (NEGATIVE); URINE COLOR Yellow; URINE GLUCOSE Negative (NEGATIVE); URINE KETONE Trace (NEGATIVE); URINE LEUKOCYTE ESTERASE Negative (NEGATIVE); URINE NITRATE Negative (NEGATIVE); URINE PROTEIN(semi-quant) 1+ (NEGATIVE); URINE UROBILINOGEN Negative (NEGATIVE)
[2019-06-30 02:50] LABS: TRICYCLIC ANTIDEPRESS URINE NEGATIVE
[2019-06-30 02:54] LABS: TSH w REFLEX 0.797 uIU/mL (0.465-4.680)
[2019-06-30] MEDS ORDERED: NEURONTIN300 MG/CAP PO (03:38)
[2019-06-30 18:00] VITALS: BP 189/91; PULSE 98
== END 2019-06-30 18:45 ==
LOC: COL.ER 01:54
PROVIDERS: Emergency Medicine
DX: R45.851 Suicidal ideations (principal); F32.9 Major depressive disorder, single episode, unspecified; E11.9 Type 2 diabetes mellitus without complications; Z79.4 Long term (current) use of insulin

== ENCOUNTER 2019-12-25 22:09 | Emergency (ER) | payer MEDICARE ==
[~2019-12-25] VITALS: Ht 177.8 cm; Wt 195.5 kg
[~2019-12-25 22:09] MED LIST changes: +NEURONTIN300 MG/CAP PO
[2019-12-25 22:29] LABS: COLLECTION METHOD CLEAN CATCH
[2019-12-25 22:34] LABS: PH 6 (5-8); SQUAMOUS EPITHELIAL 0-2 /hpf; URINE APPEARANCE Clear; URINE BACTERIA None Seen /hpf; URINE BILIRUBIN Negative (NEGATIVE); URINE BLOOD Negative (NEGATIVE); URINE COLOR Yellow; URINE GLUCOSE 3+ (NEGATIVE); URINE KETONE Trace (NEGATIVE); URINE LEUKOCYTE ESTERASE Negative (NEGATIVE); URINE NITRATE Negative (NEGATIVE); URINE PROTEIN(semi-quant) Negative (NEGATIVE); URINE UROBILINOGEN Negative (NEGATIVE)
[2019-12-25 22:50] LABS: TRICYCLIC ANTIDEPRESS URINE NEGATIVE
[2019-12-26 00:11] LABS: ALANINE AMINOTRANSFERASE 23 U/L (9-52); ALBUMIN 3.3 gm/dL (3.5-5.0); ALKALINE PHOSPHATASE 137 U/L (50-136); ANION GAP 7 mmol/L (7-16); AST,SGOT 16 U/L (15-37); BILIRUBIN,TOTAL 0.3 mg/dL (0.0-1.0); BLOOD UREA NITROGEN 12 mg/dL (7-17); CALCIUM 8.3 mg/dL (8.4-10.2); CARBON DIOXIDE 31 mmol/L (22-30); CHLORIDE 96 mmol/L (98-107); CREATININE, serum 0.57 (0.52-1.25); GLUCOSE 314 mg/dL (74-106); POTASSIUM 4.4 mmol/L (3.4-5.0); SODIUM 133 mmol/L (137-145); TOTAL PROTEIN 6.5 gm/dL (6.4-8.2)
[2019-12-26 00:13] LABS: ACETAMINOPHEN < 10 ug/mL (10-30); ALCOHOL(ethanol),MEDICAL < 10 mg/dL; BASO # 0.1 (0.0-0.2); BASO % 0.5 % (0.0-2.0); EOS # 0.2 (0.0-0.7); EOS % 1.7 % (0-4.0); GRAN # 9.7 (1.4-6.5); GRAN % 74.6 % (42.2-75.2); HEMATOCRIT 42.1 % (37.0-47.0); LYMPH # 2.2 (1.2-3.4); LYMPH % 16.9 % (20.0-51.0); MEAN CELL VOLUME 88 fl (80.0-100.0); MEAN CORPUSCULAR HEMOGLOBIN 27 pg (27.0-31.0); MEAN CORPUSCULAR HGB CONC 31 g/dl (33.0-37.0); MEAN PLATELET VOLUME 9.1 fl (7.4-10.4); MONO # 0.7 (0.1-0.6); MONO % 5.5 % (1.7-9.3); PLATELET COUNT 323 K/mm3 (130-400); REDCELL DISTRIBUTION WIDTH-CV 14.6 % (11.5-14.5); SALICYLATE < 1.0 mg/dL
[2019-12-26 11:41] VITALS: BP 121/76; PULSE 105; TEMP 97
== END 2019-12-26 11:58 ==
LOC: COL.ER 22:09
PROVIDERS: Physician Assistant
DX: R45.851 Suicidal ideations (principal); E11.9 Type 2 diabetes mellitus without complications; Z91.14 Patient's other noncompliance with medication regimen; Z79.4 Long term (current) use of insulin; F17.210 Nicotine dependence, cigarettes, uncomplicated
CPT/HCPCS: J1815; J1885

== ENCOUNTER 2020-02-25 16:22 | Inpatient (IN) | payer MEDICARE ==
[~2020-02-25] VITALS: Ht 177.8 cm; Wt 195.5 kg
[2020-02-25] VITALS (91 sets, daily range): BP systolic 120; BP diastolic 84; PULSE 96; TEMP 98.4; O2SAT 89–100
[~2020-02-25 16:22] MED LIST changes: +COUMADIN 5MG5 MG/TAB PO; +DOXYCYCLINE 10100 MG PO; +Desenex/Lotrimin AF TP; +LOVENOX150 MG/ML SQ; +NORCO 325 MG-51 TAB PO
[2020-02-25 17:24] LABS: BASO # 0.1 (0.0-0.2); BASO % 0.7 % (0.0-2.0); EOS # 0.4 (0.0-0.7); EOS % 3.1 % (0-4.0); GRAN # 8.4 (1.4-6.5); GRAN % 73.5 % (42.2-75.2); HEMATOCRIT 40.8 % (37.0-47.0); HEMOGLOBIN 12.3 g/dl (12.5-16.0); LYMPH # 1.9 (1.2-3.4); LYMPH % 16.3 % (20.0-51.0); MEAN CELL VOLUME 89 fl (80.0-100.0); MEAN CORPUSCULAR HEMOGLOBIN 27 pg (27.0-31.0); MEAN CORPUSCULAR HGB CONC 30 g/dl (33.0-37.0); MEAN PLATELET VOLUME 8.8 fl (7.4-10.4); MONO # 0.6 (0.1-0.6); MONO % 5.5 % (1.7-9.3); PLATELET COUNT 392 K/mm3 (130-400); RED BLOOD COUNT 4.58 M/mm3 (4.10-5.30); REDCELL DISTRIBUTION WIDTH-CV 14.6 % (11.5-14.5)
[2020-02-25 17:37] LABS: INR 3.9 (0.8-3.0)
[2020-02-25 17:38] LABS: ALBUMIN 3.5 gm/dL (3.5-5.0); ALKALINE PHOSPHATASE 129 U/L (50-136); ANION GAP 7 mmol/L (7-16); AST,SGOT 23 U/L (15-37); BILIRUBIN,TOTAL 0.2 mg/dL (0.0-1.0); BLOOD UREA NITROGEN 9 mg/dL (7-17); CALCIUM 8.9 mg/dL (8.4-10.2); CARBON DIOXIDE 35 mmol/L (22-30); CHLORIDE 90 mmol/L (98-107); CREATININE, serum 0.61 (0.52-1.25); GLUCOSE 348 mg/dL (74-106); POTASSIUM 4.3 mmol/L (3.4-5.0); SODIUM 133 mmol/L (137-145)
[2020-02-25 17:42] LABS: ALANINE AMINOTRANSFERASE 24 U/L (4-34)
[2020-02-25 17:52] LABS: TROPONIN-I < 0.012 ng/mL (0.000-0.035)
[2020-02-25 17:53] LABS: ARTERIAL BLD GAS O2 SATURATION 90.9 % (92-100); ARTERIAL BLD GAS TCO2 CT 36.6; ARTERIAL BLOOD GAS PCO2 53.3 mmHg (35-45); ARTERIAL BLOOD GAS pH 7.44 (7.35-7.45)
--- NOTE | 2020-02-25 21:03 | NUR ---
RECEIVED REPORT FROM ED NURSE, PATIENT TO ROOM, PER ED CART, ACCOMPANIED BY ED NURSE. INFORMED FROM CHARGE NURSE, NAFISA, PATIENT WILL BE TRANSFERED TO 2ND FLOOR ICU, REPORT THEN GIVEN TO ICU NURSE, SHELLY. PATIENT TO BE TRANSPORTED DOWN TO ICU PER BED.
[2020-02-25 21:08] LABS: CREATINE KINASE 61 U/L (30-135); LACTATE DEHYDROGENASE 682 U/L (313-618)
--- NOTE | 2020-02-25 21:15 | NUR ---
Arrived to IMCU 11 at this time. Assessment complete. Lungs clear. Heart sounds normal. Bowels active x4. Left lower extremity +3 edema with erythema and pain. Right lower extremity +2. Patient diaphoretic on arrival- afebrile. Reports chest tightness x5 days. VS stable. Has generalized cat scratches on extremities. Orientated to IMCU. Denies needs at this time. Jillian MURRELL notified of patient arrival and to come see patient soon. Will monitor.
[2020-02-25] MEDS ORDERED: NOVOLIN 70/30 710 ML SQ (21:30)
[2020-02-25] MEDS ORDERED: COUMADIN 5MG5 MG/TAB PO (21:31)
[2020-02-25] MEDS ORDERED: NORCO 325 MG-51 TAB PO (21:32)
--- NOTE | 2020-02-25 22:20 | NUR ---
Covid swab, RVP, and UA obtained. Provided patient with ordered medications. Patient had also requested something for pain in left lower ext. Per Jillian okay to add one time order for another norco (last dose in ER at 1999.) Provided to patient. Magnesium replaced as ordered. Denies other needs. call light in reach.
[2020-02-25 22:41] LABS: COLLECTION METHOD CLEAN CATCH
[2020-02-25 22:48] LABS: PH 7 (5-8); SQUAMOUS EPITHELIAL 0-2 /hpf; URINE APPEARANCE Hazy; URINE BACTERIA Rare /hpf; URINE BILIRUBIN Negative (NEGATIVE); URINE BLOOD 1+ (NEGATIVE); URINE COLOR Yellow; URINE GLUCOSE 3+ (NEGATIVE); URINE KETONE Negative (NEGATIVE); URINE LEUKOCYTE ESTERASE Negative (NEGATIVE); URINE NITRATE Negative (NEGATIVE); URINE PROTEIN(semi-quant) Negative (NEGATIVE); URINE RBC 20-50 /hpf; URINE UROBILINOGEN Negative (NEGATIVE)
[2020-02-26] VITALS (696 sets, daily range): BP systolic 98–121; BP diastolic 56–74; PULSE 81–102; TEMP 97.8–98.2; O2SAT 80–100
--- NOTE | 2020-02-26 00:38 | NUR ---
Reports pain 9/10 in left lower ext. Jillian to add orders for patient. Denies other needs at this time.
--- NOTE | 2020-02-26 04:34 | NUR ---
Reports pain 06/29. Provided with PRN morphine. Denies other needs at this time. Call light in reach.
[2020-02-26 05:37] LABS: BASO # 0.1 (0.0-0.2); BASO % 0.5 % (0.0-2.0); EOS % 0.1 % (0-4.0); GRAN # 11.5 (1.4-6.5); HEMATOCRIT 39.6 % (37.0-47.0); HEMOGLOBIN 11.9 g/dl (12.5-16.0); LYMPH # 1.1 (1.2-3.4); MEAN CELL VOLUME 88 fl (80.0-100.0); MEAN CORPUSCULAR HEMOGLOBIN 27 pg (27.0-31.0); MEAN CORPUSCULAR HGB CONC 30 g/dl (33.0-37.0); MEAN PLATELET VOLUME 9.4 fl (7.4-10.4); MONO # 0.3 (0.1-0.6); MONO % 2.6 % (1.7-9.3); PLATELET COUNT 409 K/mm3 (130-400); RED BLOOD COUNT 4.49 M/mm3 (4.10-5.30); REDCELL DISTRIBUTION WIDTH-CV 14.7 % (11.5-14.5)
[2020-02-26 05:52] LABS: ALBUMIN 3.4 gm/dL (3.5-5.0); BILIRUBIN,TOTAL 0.3 mg/dL (0.0-1.0); CALCIUM 8.4 mg/dL (8.4-10.2); CREATININE, serum 0.44 (0.52-1.25); POTASSIUM 5.1 mmol/L (3.4-5.0); TOTAL PROTEIN 6.9 gm/dL (6.4-8.2)
[2020-02-26 06:21] LABS: INR 2.9 (0.8-3.0); PROTHROMBIN TIME 34.9 SECONDS (9.7-12.8)
--- NOTE | 2020-02-26 07:40 | NUR ---
Patient required x1 norco and x2 doses of morphine for pain control. Otherwise uneventful night. Resting in bed this AM. Denies needs. Eating breakfast. Report given to SHABBIR Jha
--- NOTE | 2020-02-26 08:19 | NUR ---
Pt assessment complete. Pt is laying in bed upon entry, she is A/O x4. Her breathing is even and unlabored on 3L O2 via NC. Pt currently denies SOB or cough. She reports "not feeling well", fatigue and body aches. She is reporting pain to LLE, PRN pain medications administered and leg elevated on a pillow. Pt reports some nausea. No needs at this time. Call light within reach.
--- NOTE | 2020-02-26 10:12 | NUR ---
Pt reporting pain 9/10, PRN pain medication given. Pt states elevating leg on the pillow makes it worse, pillow removed.
--- NOTE | 2020-02-26 14:50 | NUR ---
PATRICE contacted the patient's room phone to discuss discharge plan and to complete the re-admission interview. The patient recently discharged from the hospital, 02/13, and returned back home with home health services for halfway/OT/PT from [facility] and home oxygen from [facility]. The patient reports that she has had visits with [facility] and plans to resume services from them upon discharge. PATRICE contacted and faxed updates to Dinah at [facility]. Dinah confirmed that they visited the patient three times before re-admit. She states that their was a couple of missed visits, due to them not being able to get ahold of the patient. Dinah reports that they are able to accept the patient back for services. The patient had a follow up appointment on 02/25 with her PCP, made by hospital staff. The patient did not get a chance to see her PCP before re-admit, due to the appointment being for today. The patient reports that she took her medications as prescribed. She states that she does not use her trilogy at night though, due to it keeping her awake at night. The patient lives alone in [place]. Her brother, Antoine Glass (ph#[phone]), also lives in [place]. She reports independence with ADLs and has a rolaider, continuous home oxygen and a trilogy from [facility]. The patient's primary care provider is Sarah Michelle APRN at [facility] and she receives her medications at [facility]. She reports occasional difficulties affording her medications. The patient does not have advanced directives completed. The patient is not or have any children. She states that her next of kin is her mother, Krista Glass (ph#[phone]), and that she lives in [place]. Her only sibling is her brother, Antoine. The patient was interested in getting a wedge pillow to help her sleep at night. PATRICE contacted Candida at [facility]. Candida reports that insurance does not cover for wedge pillows, but that they do have one in stock and that it is $32.80 plus tax. PATRICE informed the patient of this. The patient reports that she would be able to afford this and could purchase it after she discharges. The patient plans to return home with [facility] upon discharge. SW to continue to follow.
--- NOTE | 2020-02-26 18:50 | NUR ---
Pt continued to report pain to LLE, although she would quickly fall back asleep after requesting. Unable to tolerate leg on a pillow. Continues on 3L O2 via NC. Resting in bed at this time. Call light within reach.
--- NOTE | 2020-02-26 19:30 | NUR ---
Pt resting in bed with HOB elevated. No acute distress. VSS. Respirations even and unlabored. Lungs clear to ausculation. Spo2 95% on O2@3L via NC. Abdomen soft, nontender. BS+. Pt voiding without difficulty. Excoration noted under breasts. Pt has been refusing Desenex powder. BLE warm and reddened. LLE 2+ edema, RLE 1+ edema. Pt reports pain 8/10 in LLE with little relief from [place]. Telemetry in place- NSR. Leads replaced. Sputum cup in room. Pt denies productive cough. Pt denies further needs.
--- NOTE | 2020-02-26 20:43 | NUR ---
Deidre MURRELL notified that pt states that "Dewitt isn't helping". Deidre states that she will not given the patient additional pain medication at this time because it was discontinued today.
--- NOTE | 2020-02-26 21:10 | NUR ---
Pt O2 sat droppped to 79% on O2@3L while eating a sandwich box. RN was in the room with the patient. No distress noted. When the patient stopped eating, O2 sat stablized to 93% on O2@3L. Pt reported that she could not tell a difference between her respiratory effort.
--- NOTE | 2020-02-26 22:40 | NUR ---
Pt transferred to room 318 via wheelchair. Well tolerated by patient. Belongings sent. Call light in reach.
--- NOTE | 2020-02-26 23:40 | NUR ---
Pt c/o pain 05/29 in LLE- sharp, constant. PRN pain medication given per pt request. VSS. Pts O2 sat is currently 100% on O2@3L. Pt denies further needs.
[2020-02-27] VITALS (244 sets, daily range): BP systolic 108–125; BP diastolic 69–74; PULSE 104–111; TEMP 98–98.5; O2SAT 91–100
--- NOTE | 2020-02-27 04:31 | NUR ---
Pt up to bathroom with stand by assist. Pt dyspneic on exertion. Pt voided 1L cloudy, marivel urine. VS checked when back in bed. Pt is tachycardic with an increased RR. Spo2 94% on O2@3L. Pt reports increased pain with movement.
[2020-02-27 06:04] LABS: ALBUMIN 3.3 gm/dL (3.5-5.0); BILIRUBIN,TOTAL 0.2 mg/dL (0.0-1.0); CALCIUM 8.2 mg/dL (8.4-10.2); CREATININE, serum 0.55 (0.52-1.25); TOTAL PROTEIN 6.7 gm/dL (6.4-8.2)
--- NOTE | 2020-02-27 06:30 | NUR ---
Pt resting this AM. No distress noted. VSS. Pt reports that her LLE "still hurts" despite taking PRN pain medication. No other complaints at this time.
[2020-02-27 07:53] LABS: PROTHROMBIN TIME 24.2 SECONDS (9.7-12.8)
[2020-02-27 07:59] LABS: BASO # 0.1 (0.0-0.2); BASO % 0.7 % (0.0-2.0); EOS # 0.5 (0.0-0.7); EOS % 4.7 % (0-4.0); GRAN # 7.1 (1.4-6.5); GRAN % 69.8 % (42.2-75.2); HEMOGLOBIN 11.8 g/dl (12.5-16.0); LYMPH % 19.4 % (20.0-51.0); MEAN CELL VOLUME 90 fl (80.0-100.0); MEAN CORPUSCULAR HEMOGLOBIN 27 pg (27.0-31.0); MEAN CORPUSCULAR HGB CONC 30 g/dl (33.0-37.0); MEAN PLATELET VOLUME 9.2 fl (7.4-10.4); MONO # 0.5 (0.1-0.6); MONO % 4.7 % (1.7-9.3); PLATELET COUNT 366 K/mm3 (130-400); RED BLOOD COUNT 4.46 M/mm3 (4.10-5.30); REDCELL DISTRIBUTION WIDTH-CV 15.4 % (11.5-14.5)
--- NOTE | 2020-02-27 08:34 | NUR ---
Assessment completed, alert/oriented, vital signs stable, denies chest pain at this time and stated left leg pain is improved, some mild redness still noted to LLE, pedal pulse are palpable, heart regular / slightly tachycardic at times, lungs diminished/ distant lung sounds as patient is morbidly obese, she is a PUI r/o for COVID19 and remains in proper isolation, denies needs at this time
[2020-02-27] MEDS ORDERED: NORCO 325 MG-7.1 TAB PO (10:30)
[2020-02-27] MEDS ORDERED: NOVOLIN 70/30 710 ML SQ (10:30)
[2020-02-27] MEDS ORDERED: LOTSPY TOP (10:31)
--- NOTE | 2020-02-27 13:17 | NUR ---
The patient is to discharge back home today, 02/26, with home health services for PT/OT/residential from [facility]. The patient's COVID-19 results are pending at time of discharge--patient will be notified of result. PATRICE notified and faxed discharge orders to Dinah at [facility]. Dinah requests that PATRICE contact and notify them of the results when received. The patient is being prescribed two medications at discharge. PATRICE priced the meds. The total is $17.38. PATRICE also provided a GoodRx coupon to the patient for the hydrocodone/acetaminophen, which is $5.23. It would bring the total down to $12.12. PATRICE informed the patient of this. The patient reports that she would be able to afford both the $17.38 or $12.12. She had no other questions or concerns for PATRICE. No additional needs at this time.
--- NOTE | 2020-02-27 13:58 | NUR ---
Discharg orders discussed with patient, instructed to self quarentine and stay isolated/ we will call her at home with her COVID19 screen results, instructed to follow up with PCP in a week at the [facility] clinic, provided with prescription for increased dose of Hydrocoodone tablets, IV removed, leaving with her brother and i personally escorted her to the vehicle
--- NOTE | 2020-02-28 08:54 | NUR ---
The patient's COVID results are in and she was negative. PATRICE notified and faxed the results to Dinah at [facility]. No additional needs at this time.
== END 2020-02-27 14:00 | disposition home or self-care (01) | DRG 191 ==
LOC: COL.ER 16:22 → SURG 18:48 → EU 21:11
PROVIDERS: Emergency Medicine; Nurse Practitioner Family; Physician Assistant; ADMIT Student in an Organized Health Care Education/Training Program
DX: J44.1 Chronic obstructive pulmonary disease with (acute) exacerbation (principal); Z68.44 Body mass index [BMI] 60.0-69.9, adult; J96.12 Chronic respiratory failure with hypercapnia; J96.11 Chronic respiratory failure with hypoxia; E66.2 Morbid (severe) obesity with alveolar hypoventilation; I82.402 Acute embolism and thrombosis of unspecified deep veins of left lower extremity; L03.116 Cellulitis of left lower limb; R65.10 Systemic inflammatory response syndrome (SIRS) of non-infectious origin without acute organ dysfunction; Z99.81 Dependence on supplemental oxygen; E11.9 Type 2 diabetes mellitus without complications; R00.0 Tachycardia, unspecified; Z96.651 Presence of right artificial knee joint; Z79.4 Long term (current) use of insulin; F17.210 Nicotine dependence, cigarettes, uncomplicated; Z88.1 Allergy status to other antibiotic agents; Z88.0 Allergy status to penicillin; Z91.19 Patient's noncompliance with other medical treatment and regimen; B37.2 Candidiasis of skin and nail; F41.8 Other specified anxiety disorders; F43.10 Post-traumatic stress disorder, unspecified; G47.00 Insomnia, unspecified; R94.31 Abnormal electrocardiogram [ECG] [EKG]; R91.8 Other nonspecific abnormal finding of lung field; R79.1 Abnormal coagulation profile; R07.89 Other chest pain; Z79.84 Long term (current) use of oral hypoglycemic drugs
CPT/HCPCS: 99223-AI; 99232-AI; 99239; A9284; J1815; J2270; J2405; J3010; J3475; J7030; J7512; Q9967

== ENCOUNTER 2020-03-04 18:47 | Emergency (ER) | payer MEDICARE ==
[~2020-03-04] VITALS: Ht 177.8 cm; Wt 195.5 kg
[~2020-03-04 18:47] MED LIST changes: +LOTSPY TOP; +NORCO 325 MG-7.1 TAB PO; +NOVOLIN 70/30 710 ML SQ
[2020-03-04 18:53] VITALS: TEMP 98.1
[2020-03-04 19:42] LABS: BASO # 0.1 (0.0-0.2); BASO % 0.6 % (0.0-2.0); EOS # 0.6 (0.0-0.7); EOS % 4.5 % (0-4.0); GRAN # 9.5 (1.4-6.5); GRAN % 74.8 % (42.2-75.2); HEMATOCRIT 41.6 % (37.0-47.0); HEMOGLOBIN 12.4 g/dl (12.5-16.0); LYMPH # 1.9 (1.2-3.4); LYMPH % 14.6 % (20.0-51.0); MEAN CELL VOLUME 88 fl (80.0-100.0); MEAN CORPUSCULAR HEMOGLOBIN 26 pg (27.0-31.0); MEAN CORPUSCULAR HGB CONC 30 g/dl (33.0-37.0); MONO # 0.6 (0.1-0.6); MONO % 4.6 % (1.7-9.3); PLATELET COUNT 286 K/mm3 (130-400); RED BLOOD COUNT 4.75 M/mm3 (4.10-5.30); REDCELL DISTRIBUTION WIDTH-CV 15.1 % (11.5-14.5)
[2020-03-04 19:50] LABS: INR 1.3 (0.8-3.0); PROTHROMBIN TIME 14.8 SECONDS (9.7-12.8)
[2020-03-04 19:55] LABS: ALANINE AMINOTRANSFERASE 27 U/L (4-34); ALBUMIN 3.9 gm/dL (3.5-5.0); ALKALINE PHOSPHATASE 116 U/L (50-136); ANION GAP 4 mmol/L (7-16); AST,SGOT 26 U/L (15-37); BILIRUBIN,TOTAL 0.4 mg/dL (0.0-1.0); BLOOD UREA NITROGEN 12 mg/dL (7-17); CALCIUM 9.4 mg/dL (8.4-10.2); CARBON DIOXIDE 35 mmol/L (22-30); CHLORIDE 95 mmol/L (98-107); CREATININE, serum 0.61 (0.52-1.25); GLUCOSE 173 mg/dL (74-106); LIPASE 30 U/L (23-300); POTASSIUM 4.3 mmol/L (3.4-5.0); SODIUM 135 mmol/L (137-145); TOTAL PROTEIN 7.7 gm/dL (6.4-8.2)
[2020-03-04 20:07] LABS: TROPONIN-I < 0.012 ng/mL (0.000-0.035)
[2020-03-04] MEDS ORDERED: ZOFRAN ODT4 MG PO (20:50)
[2020-03-04 21:02] VITALS: BP 102/49; PULSE 105
== END 2020-03-04 21:28 | disposition home or self-care (01) ==
LOC: COL.ER 18:47
PROVIDERS: Emergency Medicine
DX: I82.402 Acute embolism and thrombosis of unspecified deep veins of left lower extremity (principal); R09.02 Hypoxemia; E66.01 Morbid (severe) obesity due to excess calories; E11.9 Type 2 diabetes mellitus without complications; Z79.4 Long term (current) use of insulin; Z79.01 Long term (current) use of anticoagulants
CPT/HCPCS: J7030

== ENCOUNTER 2020-03-11 14:55 | Emergency (ER) | payer MEDICARE ==
[~2020-03-11] VITALS: Ht 177.8 cm; Wt 195.5 kg
[~2020-03-11 14:55] MED LIST changes: +ZOFRAN ODT4 MG PO
[2020-03-11 15:41] LABS: COLLECTION METHOD CLEAN CATCH
[2020-03-11 15:49] LABS: MUCOUS Present /lpf; PH 6 (5-8); URINE APPEARANCE Clear; URINE BACTERIA Rare /hpf; URINE BILIRUBIN Negative (NEGATIVE); URINE BLOOD Negative (NEGATIVE); URINE COLOR Amber; URINE GLUCOSE 3+ (NEGATIVE); URINE KETONE Trace (NEGATIVE); URINE LEUKOCYTE ESTERASE Negative (NEGATIVE); URINE NITRATE Negative (NEGATIVE); URINE PROTEIN(semi-quant) 2+ (NEGATIVE)
[2020-03-11 15:59] LABS: TRICYCLIC ANTIDEPRESS URINE NEGATIVE
[2020-03-11 16:16] LABS: BASO # 0.1 (0.0-0.2); BASO % 0.4 % (0.0-2.0); EOS # 0.3 (0.0-0.7); EOS % 2.3 % (0-4.0); GRAN # 11.3 (1.4-6.5); GRAN % 83.4 % (42.2-75.2); HEMATOCRIT 40.8 % (37.0-47.0); HEMOGLOBIN 12.4 g/dl (12.5-16.0); LYMPH # 1.2 (1.2-3.4); LYMPH % 8.8 % (20.0-51.0); MEAN CELL VOLUME 87 fl (80.0-100.0); MEAN CORPUSCULAR HEMOGLOBIN 27 pg (27.0-31.0); MEAN CORPUSCULAR HGB CONC 30 g/dl (33.0-37.0); MEAN PLATELET VOLUME 9.2 fl (7.4-10.4); MONO # 0.6 (0.1-0.6); MONO % 4.6 % (1.7-9.3); PLATELET COUNT 293 K/mm3 (130-400); RED BLOOD COUNT 4.68 M/mm3 (4.10-5.30)
[2020-03-11 16:20] LABS: INR 1.6 (0.8-3.0)
[2020-03-11 16:26] LABS: ALANINE AMINOTRANSFERASE 27 U/L (4-34); ALBUMIN 3.7 gm/dL (3.5-5.0); ALKALINE PHOSPHATASE 115 U/L (50-136); ANION GAP 7 mmol/L (7-16); AST,SGOT 30 U/L (15-37); BILIRUBIN,TOTAL 0.3 mg/dL (0.0-1.0); BLOOD UREA NITROGEN 8 mg/dL (7-17); CALCIUM 8.4 mg/dL (8.4-10.2); CARBON DIOXIDE 31 mmol/L (22-30); CHLORIDE 97 mmol/L (98-107); CREATININE, serum 0.52 (0.52-1.25); GLUCOSE 231 mg/dL (74-106); POTASSIUM 3.9 mmol/L (3.4-5.0); SODIUM 135 mmol/L (137-145); TOTAL PROTEIN 7.3 gm/dL (6.4-8.2)
[2020-03-11 16:37] LABS: ARTERIAL BLD GAS O2 SATURATION 96.5 % (92-100); ARTERIAL BLD GAS TCO2 CT 31.9; ARTERIAL BLOOD GAS BASE EXCESS 3.3 (-2-2); ARTERIAL BLOOD GAS HCO3 30.2 meq/L (22-26); ARTERIAL BLOOD GAS PCO2 55.2 mmHg (35-45); ARTERIAL BLOOD GAS PO2 86.7 mmHg (80-100); ARTERIAL BLOOD GAS pH 7.36 (7.35-7.45)
[2020-03-11 16:51] LABS: ACETAMINOPHEN < 10 ug/mL (10-30); ALCOHOL(ethanol),MEDICAL < 10 mg/dL; SALICYLATE < 1.0 mg/dL
[2020-03-12 00:28] VITALS: TEMP 97.9
[2020-03-12] MEDS ORDERED: PRIL40 PO (02:50)
[2020-03-12 04:03] VITALS: BP 112/74; PULSE 67
== END 2020-03-12 03:57 | disposition home or self-care (01) ==
LOC: COL.ER 14:55
PROVIDERS: Family Medicine
DX: F32.9 Major depressive disorder, single episode, unspecified (principal); R45.851 Suicidal ideations; F41.9 Anxiety disorder, unspecified; E11.9 Type 2 diabetes mellitus without complications; I10 Essential (primary) hypertension; G47.33 Obstructive sleep apnea (adult) (pediatric); Z79.01 Long term (current) use of anticoagulants; Z79.4 Long term (current) use of insulin

== ENCOUNTER 2020-03-12 16:10 | Emergency (ER) | payer MEDICARE ==
[~2020-03-12] VITALS: Ht 177.8 cm; Wt 195.5 kg
[~2020-03-12 16:10] MED LIST changes: +PRIL40 PO
[2020-03-12 17:08] LABS: BASO # 0.1 (0.0-0.2); BASO % 0.4 % (0.0-2.0); EOS # 0.2 (0.0-0.7); EOS % 1.6 % (0-4.0); GRAN # 11.1 (1.4-6.5); GRAN % 83.3 % (42.2-75.2); HEMATOCRIT 39.9 % (37.0-47.0); HEMOGLOBIN 12.3 g/dl (12.5-16.0); LYMPH # 1.3 (1.2-3.4); LYMPH % 9.7 % (20.0-51.0); MEAN CELL VOLUME 88 fl (80.0-100.0); MEAN CORPUSCULAR HEMOGLOBIN 27 pg (27.0-31.0); MEAN CORPUSCULAR HGB CONC 31 g/dl (33.0-37.0); MONO # 0.6 (0.1-0.6); MONO % 4.3 % (1.7-9.3); PLATELET COUNT 290 K/mm3 (130-400); RED BLOOD COUNT 4.56 M/mm3 (4.10-5.30); REDCELL DISTRIBUTION WIDTH-CV 15.9 % (11.5-14.5)
[2020-03-12 17:15] LABS: INR 1.7 (0.8-3.0); PROTHROMBIN TIME 19.6 SECONDS (9.7-12.8)
[2020-03-12 17:16] LABS: ALANINE AMINOTRANSFERASE 27 U/L (4-34); ALBUMIN 3.7 gm/dL (3.5-5.0); ALKALINE PHOSPHATASE 101 U/L (50-136); ANION GAP 7 mmol/L (7-16); AST,SGOT 28 U/L (15-37); BILIRUBIN,TOTAL 0.4 mg/dL (0.0-1.0); BLOOD UREA NITROGEN 9 mg/dL (7-17); CALCIUM 8.6 mg/dL (8.4-10.2); CARBON DIOXIDE 31 mmol/L (22-30); CHLORIDE 98 mmol/L (98-107); CREATININE, serum 0.56 (0.52-1.25); GLUCOSE 251 mg/dL (74-106); POTASSIUM 4.1 mmol/L (3.4-5.0); SODIUM 135 mmol/L (137-145); TOTAL PROTEIN 7.4 gm/dL (6.4-8.2)
[2020-03-12 17:17] LABS: PARTIAL THROMBOPLASTIN TIME 35.1 SECONDS (26.0-37.0)
[2020-03-12 17:30] LABS: TROPONIN-I < 0.012 ng/mL (0.000-0.035)
[2020-03-12 18:45] VITALS: TEMP 98.4
[2020-03-12 20:19] VITALS: BP 133/88; PULSE 99
--- NOTE | 2020-03-13 14:36 | NUR ---
PATRICE received a high school social studies tutor consult from the ED for the patient on 03/12 due to needs help with skilled nursing placement. PATRICE contacted the patient to discuss her options. 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 She takes an Uber or her brother takes her where she needs to go. The patient states that Artur at [facility] is assisting her with her Medicaid application and she has sent her bank statements. The patient has been on disablity since 2010 and had Medicare. The patient receives medical care, medication management and talk therapy at [facility]. The patient has talk therapy once a week, med management once a month and has been seeing [facility] once a week since the last hospitalization. The patient states she has depression and PTSD. The patient has [facility] and they visit once a week on and mainly due vitals and may being assisting with medication management. The patient has been hospitalized at [facility], inpatient in December 2019 for 2 to 3 days. She also report she was in [place], inpatient in June of 2019 for about a week or so. The patient has reached out to [address] [place] [address] for additional assistance. They have not contacted her back yet. PATRICE provided resource education for the patient. PATRICE attempted to contact Artur haas [facility], left message. Will continue to monitor.
== END 2020-03-12 20:26 | disposition home or self-care (01) ==
LOC: COL.ER 16:10
PROVIDERS: Family Medicine
DX: F32.9 Major depressive disorder, single episode, unspecified (principal); R07.9 Chest pain, unspecified; E66.9 Obesity, unspecified; E11.9 Type 2 diabetes mellitus without complications; Z79.4 Long term (current) use of insulin; Z79.01 Long term (current) use of anticoagulants